=== PATIENT | female | born 1930 | race Caucasian/White ===

== ENCOUNTER 2016-08-16 20:39 | Emergency (ER) | payer MEDICARE, OTHER ==
[~2016-08-16] VITALS: Ht 167.6 cm; Wt 67.9 kg
[2016-08-16 20:51] VITALS: BP 162/83; PULSE 94; RESP 18; TEMP 98.1; O2SAT 97
[2016-08-16] MEDS ORDERED: LITH150C PO (21:02)
--- NOTE | 2016-08-16 21:28 | PD ---
HPI Chief Complaint: Fall Time Seen by Provider: 21:15 Travel History International Travel<30 days: No Contact w/Intl Traveler<30days: No Traveled to known affect area: No History of Present Illness HPI 86 years old female complains of right elbow pain, right knee pain, right ankle pain left leg pain. Patient fell in the bathroom this evening. Patient denies loss of consciousness. Patient denies any headache or neck pain. Patient denies any chest pain or shortness of breath. Patient denies abdominal pain. Patient denies any back pain. Patient states that she has sharp pain localized to right elbow right knee right ankle and left leg. Patient status post left hip replacement recently. Patient denies any focal weakness or numbness of the extremity. Patient states that she is up-to-date with TD booster. PFSH Past Medical History Medical History: Denies Significant Hx Tetanus Vaccination: Unknown Influenza Vaccination: No ?: Not Past Surgical History Cholecystectomy: Yes Tonsillectomy: Yes Social History Alcohol Use: No Tobacco Use: No Substance Use: No Allergies-Medications (Allergen,Severity, Reaction): Coded Allergies: Coumadin (Verified Allergy, Intermediate, RASH, 08/16/16) Reported Meds & Prescriptions Reported Meds & Active Scripts Active Reported [place] Carbonate 150 Mg Cap 150 Mg PO BID Review of Systems General / Constitutional: No: Fever Eyes: No: Visual changes HENT: No: Headaches Cardiovascular: No: Chest Pain or Discomfort Respiratory: No: Shortness of Breath Gastrointestinal: No: Abdominal Pain Genitourinary: No: Dysuria Musculoskeletal: Positive: Pain Skin: No Rash Neurologic: No: Weakness Psychiatric: No: Depression Endocrine: No: Polydipsia Hematologic/Lymphatic: No: Easy Bruising Physical Exam Narrative GENERAL: Well-nourished, well-developed patient. SKIN: Warm and dry. HEAD: Normocephalic. EYES: No scleral icterus. No injection or drainage. NECK: Supple, trachea midline. No JVD or lymphadenopathy. CARDIOVASCULAR: Regular rate and rhythm without murmurs, gallops, or rubs. RESPIRATORY: Breath sounds equal bilaterally. No accessory muscle use. GASTROINTESTINAL: Abdomen soft, non-tender, nondistended. MUSCULOSKELETAL: Patient has abrasion the lateral aspect the right elbow and prepatellar area of right knee and anterior aspect of the left low leg. Patient has moderate diffuse tenderness on palpation right elbow, right knee, right ankle, left thigh and left low leg. Full range of motion all joints. BACK: Nontender without obvious deformity. No CVA tenderness. Neurologic exam normal. Data Data Last Documented VS Vital Signs Date Time Temp Pulse Resp B/P Pulse Ox O2 Delivery O2 Flow Rate FiO2 08/16/16 21:04 Room Air 08/16/16 20:51 98.1 94 18 162/83 97 Orders Ankle, Complete (Pxz4wgm) (08/16/16 21:21) Elbow, Complete (4 Vws) (08/16/16 21:21) Femur (Ap & Lat/2vws) (08/16/16 21:21) Knee, Ltd (1 Or 2vws) (08/16/16 21:21) Tibia/Fibula (Ap/Lat) (08/16/16 21:21) Pelvis, Ap Only (Routine) (08/16/16 21:21) MDM Medical Decision Making Medical Screen Exam Complete: Yes Emergency Medical Condition: Yes Interpretation(s) Last Impressions Tibia/Fibula X-Ray 08/16/162120 Signed Impressions: Service Date/Time: Tuesday, August 16, 2016 21:44 - CONCLUSION: Intact left tibia and fibula. Oliver Zendejas MD Pelvis X-Ray 08/16/162120 Signed Impressions: Service Date/Time: Tuesday, August 16, 2016 21:36 - CONCLUSION: Intact pelvis. Oliver Zendejas MD Knee X-Ray 08/16/162120 Signed Impressions: Service Date/Time: Tuesday, August 16, 2016 21:48 - CONCLUSION: Intact right knee. Oliver Zendejas MD Femur X-Ray 08/16/162120 Signed Impressions: Service Date/Time: Tuesday, August 16, 2016 21:39 - CONCLUSION: No acute fracture of the left femur. Old, healed intertrochanteric fracture status post fixation. Oliver Zendejas MD Elbow X-Ray 08/16/162120 Signed Impressions: Service Date/Time: Tuesday, August 16, 2016 21:53 - CONCLUSION: No fracture, subluxation or perceptible joint effusion of the right elbow. Oliver Zendejas MD Ankle X-Ray 08/16/162120 Signed Impressions: Service Date/Time: Tuesday, August 16, 2016 21:48 - CONCLUSION: Intact right ankle. Oliver Zendejas MD Differential Diagnosis Differential diagnosis including contusion, abrasion, fracture, dislocation. Narrative Course 86 years old female with multiple injury to the extremity. Diagnosis Primary Impression: Multiple contusions Additional Impression: Multiple abrasions Patient Instructions: General Instructions Additional Instructions: Wound care daily. Take medications as needed for pain. Follow-up with orthopedist and personal physician. Return if persistent problem or worse. Med/Other Pt SpecificInfo: Prescription(s) given Scripts Tramadol (Ultram)50 Mg Tab50 Mg PO Q6H PRN (PAIN) #20 TAB Prov:Allen Augustin MD 08/16/16 Meloxicam (Mobic)15 Mg Tab15 Mg PO DAILY #20 TAB Prov:Allen Augustin MD 08/16/16 Disposition: 01 DISCHARGE HOME Condition: Stable Allen Augustin MD Aug 16, 2016 21:28
--- NOTE | 2016-08-16 21:50 | RADHPO ---
EXAM DATE/TIME: 08/16/2016 21:36 [facility] COMPARISON: No previous studies available for comparison. INDICATIONS : Trauma, fall. MEDICAL HISTORY : None. SURGICAL HISTORY : Cholecystectomy. Left hip surgery. ENCOUNTER: Initial ACUITY: 1 day PAIN SCORE: 5/10 LOCATION: pelvis FINDINGS: A single frontal view of the pelvis demonstrates no evidence of fracture. The bony pelvic ring is in tact. Bony mineralization is normal. The soft tissues are intact. 3 cm calcified uterine fibroid incidentally noted. There is mild osteoarthritis of both hips. CONCLUSION: Intact pelvis. Oliver Zendejas MD on August 16, 2016 at 21:48 Board Certified Radiologist. This report was verified electronically.
--- NOTE | 2016-08-16 21:54 | RADHPO ---
EXAM DATE/TIME: 08/16/2016 21:44 [facility] COMPARISON: No previous studies available for comparison. INDICATIONS : Trauma, fall. MEDICAL HISTORY : None. SURGICAL HISTORY : None. ENCOUNTER: Initial ACUITY: 1 day PAIN SCORE: 5/10 LOCATION: Left leg FINDINGS: Two view examination of the left tibia demonstrates no evidence of fracture or dislocation. There is osteopenia. Radiographic appearance of the soft tissues within normal limits.. CONCLUSION: Intact left tibia and fibula. Oliver Zendejas MD on August 16, 2016 at 21:51 Board Certified Radiologist. This report was verified electronically.
--- NOTE | 2016-08-16 21:59 | RADHPO ---
EXAM DATE/TIME: 08/16/2016 21:39 [facility] COMPARISON: No previous studies available for comparison. INDICATIONS : Trauma, fall. MEDICAL HISTORY : None. SURGICAL HISTORY : Left hip replacement. ENCOUNTER: Initial ACUITY: 1 day PAIN SCORE: 5/10 LOCATION: Left femur FINDINGS: Left femur is intact. Patient has had a previous intertrochanteric fracture status post nailing and s crewing. This has healed in normal alignment. CONCLUSION: No acute fracture of the left femur. Old, healed intertrochanteric fracture status post fixation. Oliver Zendejas MD on August 16, 2016 at 21:56 Board Certified Radiologist. This report was verified electronically.
--- NOTE | 2016-08-16 22:00 | RADHPO ---
EXAM DATE/TIME: 08/16/2016 21:48 [facility] COMPARISON: No previous studies available for comparison. INDICATIONS : Trauma, fall. MEDICAL HISTORY : None. SURGICAL HISTORY : None. ENCOUNTER: Initial ACUITY: 1 day PAIN SCORE: 5/10 LOCATION: Right ankle FINDINGS: Three view exam was performed of the right ankle. The bony structures are in normal alignment. No e vidence of fracture, dislocation, or soft tissue swelling. The ankle mortise is intact. No radiopaq ue foreign bodies are seen. Bony mineralization is normal. CONCLUSION: Intact right ankle. Oliver Zendejas MD on August 16, 2016 at 21:58 Board Certified Radiologist. This report was verified electronically.
--- NOTE | 2016-08-16 22:00 | RADHPO ---
EXAM DATE/TIME: 08/16/2016 21:48 [facility] COMPARISON: No previous studies available for comparison. INDICATIONS : Trauma, fall. MEDICAL HISTORY : None. SURGICAL HISTORY : None. ENCOUNTER: Initial ACUITY: 1 day PAIN SCORE: 5/10 LOCATION: Right knee FINDINGS: Two view examination of the right knee demonstrates no evidence of fracture or dislocation. Bony min eralization is normal. The suprapatellar soft tissues have a normal configuration. CONCLUSION: Intact right knee. Oliver Zendejas MD on August 16, 2016 at 21:58 Board Certified Radiologist. This report was verified electronically.
--- NOTE | 2016-08-16 22:01 | RADHPO ---
EXAM DATE/TIME: 08/16/2016 21:53 [facility] COMPARISON: No previous studies available for comparison. INDICATIONS : Trauma, fall. MEDICAL HISTORY : None. SURGICAL HISTORY : None. ENCOUNTER: Initial ACUITY: 1 day PAIN SCORE: 5/10 LOCATION: Right elbow FINDINGS: Multiple view examination of the right elbow demonstrates no soft tissue swelling, joint effusion, or fracture. The osseous structures are in normal alignment. Bony mineralization is normal. CONCLUSION: No fracture, subluxation or perceptible joint effusion of the right elbow. Oliver Zendejas MD on August 16, 2016 at 21:59 Board Certified Radiologist. This report was verified electronically.
[2016-08-16] MEDS ORDERED: MOBI15TA PO (22:22)
[2016-08-16] MEDS ORDERED: ULTR50TA5 PO (22:22)
[2016-08-16 22:48] VITALS: BP 158/70
== END 2016-08-16 22:50 | disposition home or self-care (01) ==
LOC: PHEFT 20:39
DX: S50.01XA Contusion of right elbow, initial encounter (principal); S80.01XA Contusion of right knee, initial encounter; S90.01XA Contusion of right ankle, initial encounter; S70.12XA Contusion of left thigh, initial encounter; S80.12XA Contusion of left lower leg, initial encounter; W18.30XA Fall on same level, unspecified, initial encounter; Y92.002 Bathroom of unspecified non-institutional (private) residence as the place of occurrence of the external cause; Y99.8 Other external cause status
CPT/HCPCS: 72170; 73080; 73552; 73560; 73590; 73610; 99284